=== PATIENT | male | born 2000 | race Two or more races ===

== ENCOUNTER 2024-11-11 18:21 | Emergency (ER) | payer SELFPAY ==
[~2024-11-11] VITALS: Ht 177.8 cm; Wt 103.4 kg
[2024-11-11 18:22] VITALS: BP 133/75; PULSE 92; RESP 18; TEMP 99.1; O2SAT 97
--- NOTE | 2024-11-11 18:42 | ED.PDOC ---
Back pain HPI HPI Comments 24-year-old male presents to the ED chief complaint left shoulder pain x2 days. Patient reports left anterior shoulder pain radiating down biceps into elbow 8/10 on pain scale. Worse with rotation backwards. He reports no known injury. 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 Denies numbness, weakness, fever, chills, known injury, chest pain, difficulty breathing or shortness of breath. Chief Complaint: Upper Extremity Time Seen by MD: 18:25 Reviewed Notes: Nurses Notes, Medications, Allergies Allergies: Coded Allergies: NO KNOWN ALLERGIES (Unverified , 11/11/24) Home Meds Active Scripts Methylprednisolone (Medrol Dosepak) 4 Mg Junior, 4 MG PO UD for 6 Days, #21 TAB UAD Prov:INEZGARTH HEARD 11/11/24 Tizanidine Hydrochloride (Tizanidine Hcl) 4 Mg Tab, 4 MG PO BID PRN for 6 Days, #12 TAB Prov:GARTH WILEY 11/11/24 Information Source: Patient Mode of Arrival: Ambulatory Past Medical History PAST MEDICAL HISTORY: Denies Surgical History: Denies all surgeries Family History Family History: Reviewed,noncontributory to illness Social History Smoker: Non-Smoker Alcohol: Denies ETOH Use Drugs: Denies Drug Use All Other Systems: Reviewed and Negative (see hpi) Physical Exam General Appearance: No Apparent Distress, Normal HEENT: Normal ENT Inspection, Pharynx Normal Neck: Full Range of Motion, Non-Tender Respiratory: Lungs Clear, No Respiratory Distress, Normal Breath Sounds Cardiovascular: No Murmur, Normal Peripheral Pulses, Regular Rate/Rhythm Breast Exam: Deferred Gastrointestinal: Non Tender, Soft Genitalia: Deferred Pelvic: Deferred Rectal: Deferred Extremities: Normal capillary refill, Normal range of motion Musculoskeletal : Location: Left Extremity Location: Shoulder (Moderate tenderness palpated over anterior shoulder in biceps tendon groove. Full range of motion with moderate discomfort. Strength sensory motion intact positive radial pulse no obvious gross external visible trauma noted) Apperance: Normal Neurologic: Alert, No Motor Deficits, Normal Affect, Normal Mood, No Sensory Deficits Cerebellar Function: Normal Reflexes: Normal Skin: Dry, Normal Color, Warm Lymphatic: No Adenopathy Was a procedure done? Was a procedure done?: No Back Pain Differential Dx Differential Diagnosis: Fracture, Musculoskeletal Pain X-Ray, Labs, Meds, VS Vital Signs Date Time Temp Pulse Resp B/P (MAP) Pulse Ox O2 Delivery O2 Flow Rate FiO2 11/11/24 18:22 99.1 92 18 133/75 97 99.1 Current Medications Medications (Trade) Dose Ordered Sig/Christiana Route Start Time Stop Time Status Last Admin Ketorolac Tromethamine (Toradol Injection) 60 mg ONCE ONCE IM 11/11/24 19:45 11/11/24 19:46 DC 11/11/24 19:54 Dexamethasone Sodium Phosphate (Decadron Injection) 10 mg ONCE ONCE IM 11/11/24 19:45 11/11/24 19:46 DC 11/11/24 19:53 Acetaminophen/ Hydrocodone Bitart (Thornton 5/325MG Tab) 1 tab ONCE ONCE PO 11/11/24 19:45 11/11/24 19:46 DC 11/11/24 19:54 X-Ray, Labs, Meds, VS Comment X-ray left shoulder shows no acute fractures osseous lesions or dislocations. 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 Patient given Toradol 60 mg IM, Decadron 10 mg IM and Thornton 5 mg p.o. reports improvement in pain and function requesting discharge at this time. Script trial of Medrol Dosepak and muscle relaxer. Patient placed in sling. Advised to rest shoulder for the next three days patient states he has not next three days off work advised to take medications as prescribed side effects discussed alternate between ice and heat. Advised if symptoms persist or worsen, follow up with his PCP for outpatient referral for an MRI. Patient agrees with discharge plan of care indicates understanding. Images Reviewed?: Images reviewed and evaluated by me Time of 1ST Reevaluation: 18:40 Reevaluation 1ST: Unchanged Time of 2ND Reevaluation: 19:58 Reevaluation 2ND: Improved Patient Education/Counseling: Diagnosis, Treatment, Prognosis, Need For Follow Up Family Education/Counseling: No Family Present SEPSIS Sepsis Screen Date sepsis recognized/suspect: Nov 11, 2024 Time Sepsis recognized/suspect: 1823 Recent Procedure: No On Antibiotic Therapy: No Respiratory Rate >20: No Heart Rate >90: Yes Temp<36 C (96.8 F) or >38.3 C: No SBP <90 or MAP <65 mmHG: No New Acute Mental Status Change: No Is the patient on CPAP, BIPAP,: No Physician Orders L Shoulder 2+ View Xray (11/11/24 18:27) Apply Sling (11/11/24 19:42) Vital Signs Date Time Temp Pulse Resp B/P (MAP) Pulse Ox O2 Delivery O2 Flow Rate FiO2 11/11/24 18:22 99.1 92 18 133/75 97 99.1 Medications Medications Dose Ordered Sig/Christiana Route Start Time Stop Time Status Last Admin Dose Admin Acetaminophen/ Hydrocodone Bitart 1 tab ONCE ONCE PO 11/11/24 19:45 11/11/24 19:46 DC 11/11/24 19:54 Dexamethasone Sodium Phosphate 10 mg ONCE ONCE IM 11/11/24 19:45 11/11/24 19:46 DC 11/11/24 19:53 Ketorolac Tromethamine 60 mg ONCE ONCE IM 11/11/24 19:45 11/11/24 19:46 DC 11/11/24 19:54 Departure 1 Departure Time of Disposition: 19:44 Impression: Primary Impression: Impingement of shoulder Disposition: 01 HOME / SELF CARE / HOMELESS Condition: Stable e-Prescriptions Methylprednisolone (Medrol Dosepak) 4 Mg Junior 4 MG PO UD for 6 Days, #21 TAB UAD Prov: GARTH WILEY 11/11/24 Tizanidine Hydrochloride (Tizanidine Hcl) 4 Mg Tab 4 MG PO BID PRN for 6 Days, #12 TAB Prov: GARTH WILEY 11/11/24 Discharged With: Self Critical Care Note Critical Care Time?: No Stability Stability form required: GARTH De Oliveira Nov 11, 2024 18:42
--- NOTE | 2024-11-11 19:15 | DVH ---
EXAMINATIONS: 4 views of the left shoulder CLINICAL HISTORY: pain x 2 days COMPARISON: None Findings and impression: No grossly displaced fractures, dislocations or bony destructive changes are evident on the provided views. Glenohumeral articulation appears intact. Acromioclavicular and coracoclavicular distances appear within normal limits. If symptoms persist, follow-up MRI may be considered to further evaluate.
[2024-11-11] MEDS ORDERED: TIZA-142 PO (19:46)
[2024-11-11] MEDS ORDERED: METH4PAK PO (19:46)
[2024-11-11] MEDS: HYDROcodone-ACET 5/325MG TAB PO ONE (19:54)
[2024-11-11] MEDS: KETOROLAC TROMETH 60MG/2ML VIAL IM ONE (19:54)
== END 2024-11-11 20:00 | disposition home or self-care (01) ==
LOC: ER 18:21
DX: M75.42 Impingement syndrome of left shoulder (principal)
CPT/HCPCS: 73030; 96372; 99284; J1100; J1885